=== PATIENT | male | born 1975 | race African-American/Black ===

== ENCOUNTER 2016-08-20 23:34 | Emergency (ER) | payer SELFPAY ==
[~2016-08-20] VITALS: Ht 180.3 cm; Wt 118.2 kg
[~2016-08-20 23:34] MED LIST: ALLEGRA 60MG TA60 MG PO; FLONASE NASAL S16 GM NS; LORTAB 5/500 501 TAB PO; NO HOME MEDICATIONS
[2016-08-20 23:36] VITALS: TEMP 99
[2016-08-21 00:31] LABS: BASO % 0.3 % (0.0-2.0); EOS % 0.4 % (0-4.0); GRAN # 6.1 (1.4-6.5); GRAN % 62.3 % (42.2-75.2); HEMATOCRIT 51.9 % (42.0-52.0); HEMOGLOBIN 17.4 g/dl (13.5-18.0); LYMPH # 2.3 (1.2-3.4); MEAN CELL VOLUME 90 fl (80.0-100.0); MEAN CORPUSCULAR HEMOGLOBIN 30 pg (27.0-31.0); MEAN CORPUSCULAR HGB CONC 34 g/dl (33.0-37.0); MEAN PLATELET VOLUME 9.6 fl (7.4-10.4); MONO # 1.2 (0.1-0.6); MONO % 12.6 % (1.7-9.3); PLATELET COUNT 224 K/mm3 (130-400); RED BLOOD COUNT 5.79 M/mm3 (4.20-5.60); REDCELL DISTRIBUTION WIDTH-CV 14.1 % (11.5-14.5); WHITE BLOOD COUNT 9.7 K/mm3 (4.8-10.8)
[2016-08-21 00:43] LABS: C-REACTIVE PROTEIN 1.8 mg/dL (0.0-0.9); CALCIUM 10.2 mg/dL (8.4-10.2); CREATININE, serum 1.18 mg/dL (0.66-1.25); POTASSIUM 4.2 mmol/L (3.4-5.0)
[2016-08-21 00:55] LABS: ERYTHROCYTE SEDIMENTATION RATE 1 mm/hr (0-15)
[2016-08-21 02:08] VITALS: BP 141/96; PULSE 112
[2016-08-21] MEDS ORDERED: AMOXICILLIN/CLA1 TA1 PO (02:10)
[2016-08-21] MEDS ORDERED: ULTRAM 50MG TAB50 MG PO (02:10)
== END 2016-08-21 02:23 | disposition home or self-care (01) ==
LOC: COL.ER 23:34
PROVIDERS: Emergency Medicine
DX: K61.1 Rectal abscess (principal); R11.2 Nausea with vomiting, unspecified; R50.9 Fever, unspecified; R00.0 Tachycardia, unspecified
CPT/HCPCS: J1170; J1885; J2405; J7030; Q9967

== ENCOUNTER 2018-01-25 20:58 | Emergency (ER) | payer SELFPAY ==
[~2018-01-25] VITALS: Ht 180.3 cm; Wt 99.1 kg
[~2018-01-25 20:58] MED LIST changes: +AMOXICILLIN/CLA1 TA1 PO; +ULTRAM 50MG TAB50 MG PO
[2018-01-25 21:09] VITALS: BP 133/90; TEMP 98.1
[2018-01-25 22:35] LABS: HIV 1/2 Antibodies Non-Reactive; HIV-1p24 Antigen Non-Reactive
[2018-01-25 23:06] VITALS: PULSE 102
== END 2018-01-25 23:06 | disposition home or self-care (01) ==
LOC: COL.ER 20:58
PROVIDERS: Emergency Medicine
DX: Z11.3 Encounter for screening for infections with a predominantly sexual mode of transmission (principal)

== ENCOUNTER 2018-04-12 16:05 | Emergency (ER) | payer SELFPAY ==
[2018-04-12 16:09] VITALS: BP 141/93; PULSE 100; TEMP 98
== END 2018-04-12 16:14 | disposition home or self-care (01) ==
LOC: COL.ER 16:05
DX: S01.01XD Laceration without foreign body of scalp, subsequent encounter (principal)